=== PATIENT | female | born 1950 | race Caucasian/White ===

== ENCOUNTER 2020-08-03 14:43 | Outpatient (CLI) | payer MEDICARE, SELFPAY ==
--- NOTE | ~2020-08-03 | MM_ITS ---
EXAMINATION: MM screening [facility] BI w pham HISTORY: Screening TECHNIQUE: Craniocaudal and mediolateral oblique 3-D tomosynthesis images were obtained and synthetic 2-D images were generated. CAD analysis was submitted and interpreted. COMPARISON: Comparison to multiple prior studies sequentially, with oldest reviewed study dated 06/16. BREAST PARENCHYMAL COMPOSITION: There are scattered areas of fibroglandular density. FINDINGS: There is no evidence of suspicious mass, calcification, or architectural distortion to sugg est malignancy in either breast. There has been no suspicious interval change. IMPRESSION: 1. No mammographic evidence of malignancy. 2. Recommend routine screening mammography in one year. BI-RADS Category 1: Negative Reviewed, dictated and finalized at location A.
--- NOTE | ~2020-08-03 | DEXA_ITS ---
Bone Density Report Name: Marguerite Dunn Age: 70 Sex: Female Ethnicity: White Date of : 1950 Indication: postmenopausal; height loss; prior fracture; cancer; Referring Provider: Bethany Erwin Study: Bone densitometry was performed. Exam Date: August 03, 2020 Accession number: [id number] Bone Density: Region BMD T-score Z-score Classification AP Spine (L1, L4) 1.169 1.2 3.4 Normal Femoral Neck (Left) 0.778 -0.6 1.2 Normal Total Hip (Left) 1.030 0.7 2.3 Normal Total Hip Bilateral Avg 0.987 0.3 2.0 Normal Femoral Neck (Right) 0.863 0.1 2.0 Normal Total Hip (Right) 0.943 0.0 1.6 Normal World Health Organization criteria for BMD impression classify patients as: Normal (T-score at or above -1.0), Osteopenia (T-score between -1.0 and -2.5), or Osteoporosis (T-score at or below -2.5). 10-year Fracture Risk: FRAX not reported because: All T-scores for Spine Total, Hip Total, Femoral Neck at or above -1.0 Previous Exams: Region Exam Age BMD T-score BMD Change BMD Change Date g/cm2 vs Baseline vs Previous AP Spine(L1, L4) 08/03/2020 70 1.169 1.2 0.123(11.7%)# -0.016(-1.4%)# 11/14/2013 63 1.185 1.3 0.139(13.3%)# 0.062(5.5%)# 06/16/2011 61 1.124 0.8 0.077(7.4%)* 0.004(0.3%) 04/23/2009 58 1.120 0.8 0.074(7.0%)* 0.074(7.0%)* 02/07/2006 55 1.046 0.1 Total Hip(Left) 08/03/2020 70 1.030 0.7 -0.071(-6.5%)# 0.028(2.8%)# 11/14/2013 63 1.002 0.5 -0.099(-9.0%)# -0.053(-5.0%)# 06/16/2011 61 1.055 0.9 -0.046(-4.1%)* -0.054(-4.9%)* 04/23/2009 58 1.109 1.4 0.009(0.8%) 0.009(0.8%) 02/07/2006 55 1.101 1.3 Total Hip(Right) 08/03/2020 70 0.943 0.0 -0.115(-10.9%) -0.024(-2.5%)# 11/14/2013 63 0.967 0.2 -0.091(-8.6%)# -0.083(-7.9%)# 06/16/2011 61 1.050 0.9 -0.008(-0.8%) -0.008(-0.7%) 04/23/2009 58 1.058 0.9 -0.001(-0.1%) -0.001(-0.1%) 02/07/2006 55 1.058 1.0 *Denotes significance at 95% confidence level, LSC for AP Spine = 0.022 g/cm2, LSC for Total Hip = 0.027 g/cm2 Clinical Information Provided by Patient: Has had a low trauma fracture Has used the following medications: Vitamin D Has the following medical conditions: Cancer Patient maximum height was 65 Menopause Age: 52 No regular weight bearing exercise Does not regularly consume dairy products Onset of menses at age 12 Number of children 2 Impression: The patient has nor
== END 2020-08-03 14:44 | disposition home or self-care (01) ==
LOC: ANHIMG 14:45
PROVIDERS: PCP Internal Medicine; Visit Provider Nurse Practitioner
DX: Z12.31 Encounter for screening mammogram for malignant neoplasm of breast (principal); Z78.0 Asymptomatic menopausal state
CPT/HCPCS: 77063; 77067; 77080

== ENCOUNTER 2021-09-06 08:28 | Outpatient (CLI) | payer MEDICARE, SELFPAY ==
--- NOTE | ~2021-09-06 | MM_ITS ---
EXAMINATION: MM screening [facility] BI w pham HISTORY: Screening TECHNIQUE: Craniocaudal and mediolateral oblique 3-D tomosynthesis images were obtained and synthetic 2-D images were generated. CAD analysis was submitted and interpreted. COMPARISON: Comparison to multiple prior studies sequentially, with oldest reviewed study dated 09/27. BREAST PARENCHYMAL COMPOSITION: There are scattered areas of fibroglandular density. FINDINGS: There is no evidence of suspicious mass, calcification, or architectural distortion to sugg est malignancy in either breast. There has been no suspicious interval change. IMPRESSION: 1. No mammographic evidence of malignancy. 2. Recommend routine screening mammography in one year. BI-RADS Category 1: Negative Reviewed, dictated and finalized at location A.
== END 2021-09-06 08:29 | disposition home or self-care (01) ==
PROVIDERS: PCP Internal Medicine; Visit Provider Internal Medicine
DX: Z12.31 Encounter for screening mammogram for malignant neoplasm of breast (principal)
CPT/HCPCS: 77063; 77067

== ENCOUNTER 2021-11-14 09:23 | Outpatient (CLI) | payer MEDICARE, SELFPAY ==
--- NOTE | ~2021-11-14 | CT_ITS ---
EXAMINATION: CT LE LT wo con DATE: 11/14/2021 10:53 INDICATION: Unilateral primary osteoarthritis of the left knee TECHNIQUE: High resolution computed tomography (CT) of the left was performed without intravenous con trast. Additional sagittal and coronal reconstructions were performed. Automated exposure control and iterative reconstruction technique were employed. The dose-length product was 1723.17 mGy-cm. COMPARISON: Left knee radiographs dated 09/07/2021 FINDINGS: Mild left genu vera with severe osteoarthritis in medial compartment including remodeling of the jasbir cular cortex along the medial tibial plateau. The degree of joint space narrowing is underestimated o n the current nonweightbearing imaging compared with the prior radiographs. Mild osteoarthritis with small marginal ossified to medial compartment and with small marginal osteophytes and mild nonuniform joint space narrowing in the patellofemoral compartment. Very small left knee joint effusion. Additi onal mild osteoarthritis at the left hip, left tibiotalar and subtalar joints as well as several tars al metatarsal joints. Chronic distal Achilles enthesopathy with large Achilles calcaneal enthesophyte and multiple enthesopathic ossicles in the thickened distal Achilles tendon. Numerous diverticula al michael the sigmoid and distal descending colon without adjacent inflammatory change to suggest diverticu litis. Pessary within the vaginal vault. Visualized pelvis is otherwise unremarkable. No pathological ly enlarged left pelvic or inguinal lymphadenopathy. IMPRESSION: 1. Severe medial compartment predominant osteoarthritis at the left knee with very small knee joint e ffusion. 2. Prominent chronic distal Achilles enthesopathy. 3. Diverticulosis. Reviewed, dictated and finalized at location . ING MACHINE TENDER IMPRESSION: 1. Severe medial compartment predominant osteoarthritis at the left knee with v jayson small knee joint effusion. 2. Prominent chronic distal Achilles enthesopathy. 3. Diverticulosis.
--- NOTE | 2021-11-14 11:22 | ECG_ITS ---
Measurements Intervals [place] Rate: 70 P: 36 CA: 154 QRS: 11 QRSD: 89 T: 41 QT: 369 QTc: 401 Interpretive Statements SINUS RHYTHM VOLTAGE CRITERIA FOR LVH BORDERLINE ECG Electronically Signed On 11-14-2021 11:37:37 STRAWHAT BLOCKING OPERATOR by Lucian Lacey D.O.
[2021-11-14 11:34] LABS: Hematocrit 35.2 % (37.0-47.0); Hemoglobin 11.6 g/dL (12.0-15.0)
[2021-11-14 11:48] LABS: Albumin Level 4.6 g/dL (3.5-5.1); Estimated Glomerular Filt Rate > 60; Glucose 101 mg/dL (65-110)
[2021-11-14 11:55] LABS: Urine Cotinine NEGATIVE
== END 2021-11-14 09:24 | disposition home or self-care (01) ==
PROVIDERS: PCP Internal Medicine; Visit Provider Orthopaedic Surgery
DX: M17.12 Unilateral primary osteoarthritis, left knee (principal); Z01.818 Encounter for other preprocedural examination; E78.5 Hyperlipidemia, unspecified; E11.9 Type 2 diabetes mellitus without complications; I10 Essential (primary) hypertension; E03.9 Hypothyroidism, unspecified; G45.9 Transient cerebral ischemic attack, unspecified; K57.30 Diverticulosis of large intestine without perforation or abscess without bleeding
CPT/HCPCS: 73700; 80307; 82040; 82565; 82947; 83036; 85014; 85018; 93005

== ENCOUNTER 2021-11-15 14:44 | Emergency (ER) | payer MEDICARE, SELFPAY ==
[2021-11-15] VITALS (7 sets, daily range): BP systolic 120–142; BP diastolic 55–85; PULSE 81–94; RESP 14–19; TEMP 36.9; O2SAT 96–99
--- NOTE | ~2021-11-15 | CT_ITS ---
EXAMINATION: CT brain wo con DATE: 11/15/2021 15:06 INDICATION: Head injury. Loss of consciousness. TECHNIQUE: Computed tomography (CT) of the head was performed without intravenous contrast. The mA wa s adjusted according to patient size. Iterative reconstruction technique was employed. The dose-lengt h product was 681.00 mGy-cm. COMPARISON: None FINDINGS: There is an old lacunar infarct in left thalamus. There are scattered areas of low attenuat ion in the cerebral white matter, which is within normal limits for the patient's age. There is no in tracranial hemorrhage, acute infarction, or abnormal intracranial mass lesion. The ventricles are nor mal in size. The orbits are normal. There is mild mucosal thickening in the ethmoid sinuses. The mast oid air cells are normal. There is a laceration of left posterior scalp. IMPRESSION: 1. Old lacunar infarct in the left thalamus. Reviewed, dictated and finalized at location A. ING SPECIALIST
--- NOTE | ~2021-11-15 | XR_ITS ---
EXAMINATION: XR shoulder RT min 2V DATE: 11/15/2021 16:25 INDICATION: Postreduction right glenohumeral dislocation TECHNIQUE: AP and transscapular Y views of the right shoulder were obtained. COMPARISON: 03/16/2021 FINDINGS: Successful reduction of the previous a dislocated right glenohumeral joint. There is narrowing of the subacromial space suggesting rotator cuff tear. No fracture identified. Moderate right acromioclavic ular osteoarthritis. Small marginal osteophytes along the humeral head and glenoid consistent with ad ditional mild right glenohumeral osteoarthritis. Soft tissues are unremarkable. IMPRESSION: 1. Successful reduction of the previously dislocated right glenohumeral joint. No evident fracture. 2. Narrowing of the subacromial space suggesting rotator cuff tear. 2. Moderate right acromioclavicular and mild glenohumeral osteoarthritis. Reviewed, dictated and finalized at [facility]. STMAS TREE GROWER
--- NOTE | ~2021-11-15 | XR_ITS ---
XR shoulder RT min 2V, XR humerus RT 11/15/2021 15:21 Indication: Right shoulder pain after fall Procedure: 2 views right shoulder and 2 views right humerus Comparison: No prior studies for comparison. Findings: There is anterior shoulder dislocation. No fracture identified. Acromioclavicular joint in anatomic alignment. No significant soft tissue abnormality. Impression: 1: Right anterior shoulder dislocation. Reviewed, dictated and finalized at location A. ENT RELATIONS REPRESENTATIVE Impression: 1: Right anterior shoulder dislocation. Impression: 1: Right anterior shoulder dislocation.
--- NOTE | ~2021-11-15 | XR_ITS ---
XR thoracic spine 2V DATE: 11/15/2021 16:25 INDICATION: Fall. Upper back pain. TECHNIQUE: AP and lateral views COMPARISON: None FINDINGS: Diffuse osteopenia. No fracture or dislocation or bone destruction. The thoracic pedicles a re intact. No paraspinal soft tissue thickening. There is mild degenerative spurring of the thoracic spine. More prominent degenerative disc disease is noted in the lumbar spine. IMPRESSION: Osteopenia and mild degenerative spurring of the thoracic spine, more prominent degenerat espinoza spurring of lumbar spine Reviewed, dictated and finalized at location B. AL BASIC PROGRAMMER IMPRESSION: Osteopenia and mild degenerative spurring of the thoracic spine, mo re prominent degenerative spurring of lumbar spine
--- NOTE | ~2021-11-15 | CT_ITS ---
EXAMINATION: CT cervical spine wo con DATE: 11/15/2021 15:06 INDICATION: Head injury. Neck pain. TECHNIQUE: Computed tomography (CT) of the cervical spine was performed without intravenous contrast. Automated exposure control and iterative reconstruction technique were employed. The dose-length pro duct was 464.41 mGy-cm. COMPARISON: None FINDINGS: Partially visualized is anterior dislocation of right shoulder. There is 9 degrees dextrocu rvature of cervical spine. Vertebral body heights are normal. There is mildly decreased disc height a t C5-C6 and severely decreased disc height at C6-C7. The following disc levels are specifically discu ssed: C2-C3: There is mild left uncovertebral joint osteoarthritis. There is moderate right and severe left facet joint osteoarthritis. There is no neural foraminal stenosis. There is no central canal stenosi s. C3-C4: There is mild left uncovertebral joint osteoarthritis. There is mild right and moderate left f acet joint osteoarthritis. There is no neural foraminal stenosis. There is no central canal stenosis. C4-C5: There is mild bilateral uncovertebral joint osteoarthritis. There is moderate bilateral facet joint osteoarthritis. There is mild bilateral neural foraminal stenosis. There is mild central canal stenosis. C5-C6: There is mild right and severe left uncovertebral joint osteoarthritis. There is mild bilatera l facet joint osteoarthritis. There is mild bilateral neural foraminal stenosis. There is mild centra l canal stenosis. C6-C7: There is severe bilateral uncovertebral joint osteoarthritis. There is moderate right and mile re left facet joint osteoarthritis. There is mild bilateral neural foraminal stenosis. There is mild central canal stenosis. C7-T1: There is mild bilateral uncovertebral joint osteoarthritis. There is moderate right and severe left facet joint osteoarthritis. There is mild left neural foraminal stenosis. There is no central c anal stenosis. IMPRESSION: 1. No fracture. 2. Severe cervical spondylosis. 3. Anterior right shoulder dislocation. Reviewed, dictated and finalized at location A. HIC MANAGER
[2021-11-15] MEDS: SODIUM CHLORIDE 0.9% IV 1,000 ML 999 ML IV CONT (16:01)
--- NOTE | 2021-11-15 16:21 | ED.GENADULT ---
HPI - General Adult General Chief complaint: Fall <Greg Ball PA-C - Last Filed: 11/15/21 20:10> Stated complaint: fall down stairs <Greg Ball PA-C - Last Filed: 11/15/21 20:10> Source: patient and EMS <Greg Ball PA-C - Last Filed: 11/15/21 20:10> Mode of arrival: EMS <Greg Ball PA-C - Last Filed: 11/15/21 20:10> Limitations: no limitations <KRUNAL Singh Last Filed: 11/15/21 20:10> History of Present Illness HPI narrative: Patient is 71-year-old female presented via EMS after a fall down 12 steps while carrying things at her home. Patient reports that her heard her fall and contacted her son and daughter who came to the house and helped her and called EMS. Patient reports that she hit her head and lost consciousness for a few seconds. She denies any changes to her vision, hearing, nausea, vomiting, weakness to her extremities. Patient reports pain and deformity to her right shoulder. Patient reports injury to the left side of her head. She denies chest pain or shortness of breath. <KRUNAL Singh Last Filed: 11/15/21 20:10> Related Data Home medications: Home Medications Medication Instructions Recorded Confirmed levothyroxine 137 mcg tablet 125 mcg PO DAILY tablet 09/07/21 09/07/21 cholecalciferol (vitamin D3) 50 200 mcg PO DAILY cap 09/20/21 mcg (2,000 unit) capsule <Greg Ball PA-C - Last Filed: 11/15/21 20:10> Allergies/adverse reactions: Allergies Allergy/AdvReac Type Severity Reaction Status Date / Time codeine Allergy Unknown Nausea Verified 11/15/21 14:51 <Greg Ball PA-C - Last Filed: 11/15/21 20:10> Review of Systems Review of Systems: CONSTITUTIONAL: Denies fever, chills, or sweats. EYES: Denies visual changes, redness, or discharge. ENT: Denies rhinorrhea, congestion, sore throat, or otalgia. CARDIOVASCULAR: Denies chest pain, palpitations, or edema. RESPIRATORY: Denies cough or dyspnea. GASTROINTESTINAL: Denies abdominal pain, nausea, vomiting, or diarrhea. GENITOURINARY: Denies dysuria or hematuria. SKIN: Reports laceration Denies rash or itching. MUSCULOSKELETAL: Right shoulder pain deformity and thoracic back pain Denies joint pain or myalgia. NEUROLOGIC: Denies headache, numbness, dizziness, or weakness. PSYCHIATRIC: Denies anxiety or depression. <Greg Ball PA-C - Last Filed: 11/15/21 20:10> PMFSH Past Medical History Medical History: Medical History (Updated 11/15/21 @ 17:37 by Greg Ball PA-C) Bilateral knee pain Diabetes Hernia HTN (hypertension) Hyperlipidemia Hypokalemia Hypothyroidism Postoperative hypothyroidism TIA (transient ischemic attack) 2007 Vitamin deficiency <Greg Ball PA-C - Last Filed: 11/15/21 20:10> Surgical History Surgical History: Surgical History History of appendectomy 1964 History of biopsy lump biopsy 1992 History of thyroidectomy 2003 History of tubal ligation 1984 <Greg Ball PA-C - Last Filed: 11/15/21 20:10> Family History Family History: Family History Mother Depression Hypertension Family history of heart disease in male family member before age 55, Onset Age: 71 Hyperlipidemia Heart disease Diabetes mellitus Father Hypertension Family history of osteoarthritis Family history of kidney disease Family history of diabetes mellitus in first degree relative Heart disease Diabetes mellitus Sibling Carcinoma of colon <Greg Ball PA-C - Last Filed: 11/15/21 20:10> Social History Social History: Social History (Updated 09/20/21 @ 11:12 by Ai Jose) Social History: caffeine-soda Smoking status: Never smoker Alcohol intake: never <Greg Ball PA-C - Last Filed: 11/15/21 20:10> Exam Narrative: GENERAL: Well-appearing, well-nourished, and
== END 2021-11-15 17:44 | disposition home or self-care (01) ==
PROVIDERS: Emergency Provider Emergency Medicine; PCP Internal Medicine
DX: S01.01XA Laceration without foreign body of scalp, initial encounter (principal); S43.014A Anterior dislocation of right humerus, initial encounter; E11.9 Type 2 diabetes mellitus without complications; I10 Essential (primary) hypertension; E78.5 Hyperlipidemia, unspecified; E89.0 Postprocedural hypothyroidism; Z86.73 Personal history of transient ischemic attack (TIA), and cerebral infarction without residual deficits; M47.812 Spondylosis without myelopathy or radiculopathy, cervical region; M19.011 Primary osteoarthritis, right shoulder; W10.9XXA Fall (on) (from) unspecified stairs and steps, initial encounter
CPT/HCPCS: 12001; 23650; 70450; 72070; 72125; 73030; 73060; 99285; A4565; J7030

== ENCOUNTER 2021-12-14 11:38 | Outpatient (CLI) | payer MEDICARE, SELFPAY ==
[2021-12-14 12:53] LABS: Basophils Percent Auto 0.5 % (0.2-1.2); Eosinophils Absolute Auto 0.1 K/mm3 (0-0.3); Eosinophils Percent Auto 0.8 % (0-4.4); Hematocrit 35.7 % (37.0-47.0); Hemoglobin 11.6 g/dL (12.0-15.0); Immature Granulocyte Absolute 0.02 K/mm3 (0.00-0.031); Immature Granulocyte Percent A 0.3 % (0-0.5); Lymphocytes Absolute Auto 1.46 K/mm3 (0.9-3.2); Lymphocytes Percent Auto 19.7 % (18.3-44.2); Mean Corpuscular HGB Conc 32.5 g/dl (32-36); Mean Corpuscular Hemoglobin 30.1 pg (26-34); Mean Corpuscular Volume 92.7 fl (80-100); Mean Platelet Volume 11.7 fl (7.4-10.4); Monocytes Absolute Auto 0.4 K/mm3 (0.1-0.6); Monocytes Percent Auto 5.8 % (2.6-8.5); Neutrophils Absolute Auto 5.4 K/mm3 (1.3-6.7); Neutrophils Percent Auto 72.9 % (45.5-73.1); Platelet Count Result 166 k/mm3 (150-375); Red Blood Count 3.85 M/mm3 (4.2-5.4); Red Cell Distribution Width 14.1 % (11.5-14.5); White Blood Count 7.4 K/mm3 (4.5-10.0)
[2021-12-14 13:07] LABS: Anion Gap 8 mmol/L (8-16); Blood Urea Nitrogen 23 mg/dL (7-17); Calcium 10.3 mg/dL (8.4-10.2); Carbon Dioxide 33 mmol/L (22-30); Chloride 98 mmol/L (98-107); Estimated Glomerular Filt Rate > 60; Glucose 96 mg/dL (65-110); Potassium 3.6 mmol/L (3.4-5.0); Sodium 139 mmol/L (137-145)
== END 2021-12-14 11:39 | disposition home or self-care (01) ==
LOC: ANHSURGERY 11:41
PROVIDERS: Anesthesiology; PCP Internal Medicine; Visit Provider Orthopaedic Surgery
DX: M17.12 Unilateral primary osteoarthritis, left knee (principal); Z79.899 Other long term (current) drug therapy; Z01.818 Encounter for other preprocedural examination
CPT/HCPCS: 36415; 80048; 85025; 87081

== ENCOUNTER 2022-01-10 00:18 | Day surgery (SDC) | payer MEDICARE, SELFPAY ==
--- NOTE | 2021-12-14 11:50 | PC.NURSE ---
Report to the Outpatient Waiting Room, entrance under the green pavilion located off [facility], at time ___0900____ on date __01/10/22 . OR Time: 1100___. - You and your visitor will be asked a series of questions to screen for COVID 19 for your protection. - A mask is required within the hospital. - NO visitors are allowed at this time. Patient visitors will be guided where to wait when not with patient. Preoperative COVID Testing Requirements: No COVID Test needed if: (proof is required; if not received patient will have Rapid Test prior to entry) - Patient has received COVID Vaccine at least 14 days prior to procedure date or - Patient has positive COVID test result within last 90 days of surgery date. COVID Test needed if above criteria is not met If not COVID vaccinated a COVID test must be conducted within 72 hours of surgery and patient is asked to isolate self from time of testing until procedure. You will go to the [employer] [facility] for your COVID testing. The [employer] [place] Testing site is located at the corner of [address] [facility]. You will only be called if COVID results are positive and your surgeon may reschedule your elective surgery date. Patients may have clear liquids (water, carbonated beverages, clear teas, apple juice) until 3 hours prior to surgery with a maximum of 20 ounces. (0800 AM) - No food from midnight until time of surgery - Infants may have breast milk until 4 hours before surgery, formula 6 hours prior to surgery. - Children will be allowed to drink immediately following surgery. If applicable, please bring a bottle or sippy cup to assist with drinking. Juice, water, soda, and popsicles are readily available. For infants on formula, please bring formula the day of surgery. Pacifiers are allowed. Take the following medications with a SIP of water the morning of surgery: _LEVOTHYROXINE__ Mediacations to discontinue per DR. OSPINA - _IBUPROFEN - 7 DAYS PRIOR TO SURGERY, DATE TO TAKE LAST DOSE 01/02/22 Medications to discontinue per ANESTHESIA - _VIT D3 - 3 DAYS PRIOR TO SURGERY, DATE TO TAKE LAST DOSE 01/06/22 Please no make-up, nail botswanan, hairspray, perfume, deodorant, or body powder the day of surgery. No jewelry (including any body piercings) or valuables the day of surgery, leave them at home. Please take a shower or bath the night before, or the morning of, surgery with an antibacterial soap. Wear comfortable, loose fitting clothing. Children are encouraged to wear pajamas. - Jewelry must be removed prior to entering the operating room. Rings and piercings that are not removed may be cut off. - The hospital will not accept responsibility for valuables. - Please leave all valuables, including medications, at home the day of surgery. If you are going home after surgery, a licensed team truck driver must drive you home. - NO public transportation without another adult. - We recommend that an adult stay with you for 24 hours following discharge. - We also recommend that you do not drive, make important decision, drink alcoholic beverages, or take any drugs that were not prescribed by your health care provider for at least 24 hours after your discharge time. For Pediatric surgeries, we recommend two adults accompany the child home (only one inside the building at this time). Follow any additional instructions given to you from your surgeon. Telephone instructions given to ___PT and asked if any additional questions and then verbalized understanding. Patient advised to call surgeon office or pre surgery nurse liaison [phone] if any additional questions.
[2021-12-14 12:04] VITALS: BP 142/66; PULSE 78; RESP 18; TEMP 36.6; O2SAT 97; BMI 28.7
--- NOTE | 2022-01-09 12:16 | WPDANESEPPF ---
Anes - Initial Pre Proc Eval Procedure: Operation Date: 01/10/22 11:00 Proposed Procedures p Custom Left Total Knee Arthroplasty - Nathaniel Barajas MD Date/Time: 01/09/22 12:16 Surgeon: Nathaniel Barajas MD Pre Op Diagnosis: primary oa left knee Patient Data Age: 71 Gender: F Height: 1.63 m Weight: 75.9 kg Last Vital Signs Temp 36.6 C 12/14/21 12:04 Pulse 78 12/14/21 12:04 Resp 18 12/14/21 12:04 BP 142/66 H 12/14/21 12:04 Pulse Ox 97 12/14/21 12:04 Allergies Allergy/AdvReac Type Severity Reaction Status Date / Time codeine AdvReac Unknown Nausea Verified 01/10/22 10:16 Home Medications Medication Instructions Recorded Confirmed Type atorvastatin 10 mg tablet 10 mg PO DAILY #90 tablet 07/22/21 01/10/22 Rx losartan 100 1 tablet PO DAILY #90 tablet 07/26/21 01/10/22 Rx mg-hydrochlorothiazide 25 mg tablet levothyroxine 137 mcg tablet 125 mcg PO DAILY tablet 09/07/21 01/10/22 History cholecalciferol (vitamin D3) 50 200 mcg PO DAILY cap 09/20/21 01/10/22 History mcg (2,000 unit) capsule acetaminophen 650 mg 1,300 mg PO Q8H tablet 01/03/22 01/10/22 History tablet,extended release Patient hx anesthesia problems: none Family hx anesthesia problems: none Results Review: All pre-operative results and documents have been reviewed as part of the pre-operative evaluation. [facility] Past Medical History Medical History (Updated 01/09/22 @ 12:17 by Aldair Penn MD) Bilateral knee pain Diabetes Hernia HTN (hypertension) Hyperlipidemia Hypokalemia Hypothyroidism Overweight (BMI 25.0-29.9) Postoperative hypothyroidism Thyroid cancer TIA (transient ischemic attack) 2007 Vitamin deficiency Surgical History Surgical History History of appendectomy 1964 History of biopsy lump biopsy 1992 History of thyroidectomy 2004 History of tubal ligation 1985 Family History Family History Mother Depression Hypertension Family history of heart disease in male family member before age 55, Onset Age: 71 Hyperlipidemia Heart disease Diabetes mellitus Father Hypertension Family history of osteoarthritis Family history of kidney disease Family history of diabetes mellitus in first degree relative Heart disease Diabetes mellitus Sibling Carcinoma of colon Social History Social History Social History: caffeine-soda Second hand tobacco smoke exposure: No Additional smoking assessment comments: PT DENIES ALL FORMS OF TOBACCO USE Alcohol intake: never Substance use: never Substance use type: does not use Living arrangements: with family Spiritual care concerns: No Anes - Eval Final PreProcedure Day of Procedure 01/09/22 12:16 Patient weight: overweight Heart: regular rate and rhythm Lungs: clear to auscultation and normal air movement Airway: Mallampati scale class II Neurological: alert and oriented Last oral intake: >/= 8 hours ASA classification: III Emergent: no Anesthetic plan: proceed Anesthesia type and monitoring: general LMA Results Review: All pre-operative results and documents have been reviewed as part of the pre-operative evaluation. Informed Consent: The patient's anesthetic plan and its attendant risks and benefits were discussed with the patient/family/POA. Questions were solicited and answers provided to the satisfaction of the patient/family/POA.
--- NOTE | 2022-01-09 12:17 | WPDANESPNB ---
Anes - Peripheral Nerve Block Date/Time: 01/09/22 12:17 I have discussed with the patient/family/POA the placement of a peripheral nerve block for post-operative pain management, including associated risks, benefits, complications, and side effects. Alternative methods of post-operative analgesia were detailed. Questions were solicited and answers provided to the satisfaction of the patient/family/POA. Time-Out: A pre-procedural Time-Out was completed immediately before starting the procedure and confirmed: Patient Identification, Site, Procedure, Patient Position and the Availability of Requisite Equipment. Clinical Indications: Acute post-operative pain management requested by the operative surgeon. Nerve Block Insertion Note Anes-nerve block: adductor canal left Patient position: supine Skin prep: chlorhexidine Needle: 22 gauge, stimulating, insulated echogenic needle. Needle length: 80 mm Technique: ultrasound Technique comment: in plane Injectate: bupivacaine 0.5% with epi 5 mcg/ml (30cc) Observations: tolerated well Complications: none Procedure start time:: 1055 Procedure end time:: 1100
[2022-01-10] VITALS (15 sets, daily range): BP systolic 112–147; BP diastolic 51–71; PULSE 64–97; RESP 12–18; TEMP 36.3–37.1; O2SAT 94–100
--- NOTE | ~2022-01-10 | XR_ITS ---
XR knee LT 2V DATE: 01/10/2022 13:58 INDICATION: Left total knee replacement, postoperative examination TECHNIQUE: AP and crosstable lateral portable postoperative views COMPARISON: None FINDINGS: Left knee arthroplasty without patellar resurfacing. Normal alignment of the prosthetic com ponents. No fracture or dislocation or joint effusion is evident. No periosteal reaction or bone dest ruction. No unusual radiopaque foreign body. There is expected postoperative subcutaneous and intra-articular gas. IMPRESSION: Postoperative examination following left knee arthroplasty without patellar resurfacing Reviewed, dictated and finalized at location B. [employer]
--- NOTE | 2022-01-10 07:10 | WPDHPUPDATE1 ---
History and Physical Update Update Date/Time: 01/10/22 07:10 History and Physical has been reviewed, including an updated exam of the patient. There are NO changes in the patient's condition. Risks, benefits, and alternatives have been discussed and questions answered. Patient agrees to proceed with procedure.
[2022-01-10] MEDS: TRANEXAMIC ACID 1,000MG/ISO100 1,000 MG/100 ML BAG 200 MG IVPB (10:00)
[2022-01-10] MEDS: ACETAMINOPHEN 500 MG TABLET 1000 MG PO (10:00)
[2022-01-10] MEDS: LACTATED RINGERS 1,000 ML 30 ML IV CONT ×2 (10:00→13:47)
[2022-01-10] MEDS: SCOPOLAMINE 1.5 MG PATCH TRANSDERM (11:00)
[2022-01-10] MEDS: ceFAZolin 2 GM/D5W 50 ML 2 GM/50 ML BAG IVPB ×2 (11:22→18:04)
--- NOTE | 2022-01-10 14:14 | W.PM.PROC2 ---
Procedure Note - Detailed Date of Procedure 01/10/22 Pre-op Diagnosis primary oa left knee Post-op Diagnosis same Procedure Performed Total knee arthroplasty, left. Surgeon Nathaniel Barajas MD Work Distributor Madison Dai PA-C Anesthesia general and regional (Subsartorial block.) Description of Procedure Physician budget assistant, Madison Johnson PA-C, required for surgery; including patient positioning, draping, tissue retraction, maintaining instrument position, cement removal, wound closure, and dressing placement. Preoperative antibiotics were given. The limb was prepped and draped in the usual sterile fashion with a well-padded tourniquet high on the thigh. The limb was exsanguinated and the tourniquet inflated to 300 mmHg. A longitudinal incision was created just medial to the patella. A trivector approach to the knee was performed. Arthrotomy was taken down through the joint capsule. No significant releases were initially taken. The femur was exposed and the F1 jig was applied. The coring tool was used to remove the cartilage for the F2 jig to sit flush with the bone. The jig was pinned and the distal cut carefully taken. Caliper measurements confirmed appropriate bony resections according to the preoperative templated plan. The F4 cutting jig for the femur was applied, at the standard rotation. The AP and anterior chamfer cuts were taken. The F5 jig was applied and the posterior chamfer cuts were taken. The tibia was prepared using the T1 jig, after removing cartilage for the jig contact points. Proper alignment was checked with the alignment kenn. The tibia was cut using the T1u guide. Gap balancing was performed. Gap measurements were taken and the knee was trialed. Excellent alignment and soft tissue balancing was confirmed. The posterior cruciate ligament was recessed along the proximal tibia. Meniscal remnants were removed. The trial components were assembled. Excellent range of motion and proper soft tissue balancing were confirmed throughout the full range of motion. Patellar tracking was excellent. The knee was copiously irrigated periodically throughout the procedure. The real implants were cemented into position. Excess cement was carefully removed. The wound was closed in layers with interrupted #1 Vicryl suture, 2-0 strata fix suture, 0 strata fix suture, 2-0 strata fix suture. Steri-Strips placed on the skin with the knee flexed. Sterile bulky dressing applied. The patient was brought to the recovery room in stable condition. There were no complications. Implants Conformis Custom total knee arthroplasty. Cemented. Cruciate retaining. 7C insert. Estimated Blood Loss -50.0 Drains No Complications No immediate complications Condition stable Disposition PACU
[2022-01-10] MEDS: fentaNYL CITRATE INJ (*CRX) 100 MCG/2 ML VIAL 25 MCG IV PUSH ×3 (14:46→15:27)
[2022-01-10] MEDS: SODIUM CHLORIDE 0.9% IV 1,000 ML 125 ML IV CONT (15:56)
--- NOTE | 2022-01-10 16:06 | ADMGEN ---
This patient, Marguerite Dunn, was admitted to [facility] (Formerly [facility]) Surgery-1. Patient/family oriented to hospital policies and general routines including ID bracelet, bed and alarms, visiting hours, pain management, procedures, bathroom and other care routines, personal items, smoking policy, room service/diet, and visiting hours. Information on how to activate the Rapid Response Team has been discussed. Patient/Family are encouraged to report perceived risks to care and to ask questions if they do not understand what they are told or what they should do.
[2022-01-10] MEDS: SENNA/DOCUSATE SODIUM TABLET 2 TAB PO (17:19)
[2022-01-10] MEDS: FAMOTIDINE 20 MG TABLET PO (20:43)
[2022-01-11 01:23] VITALS: BP 121/54; PULSE 61; RESP 18; TEMP 36.8; O2SAT 95
[2022-01-11] MEDS: ceFAZolin 2 GM/D5W 50 ML 2 GM/50 ML BAG IVPB ×2 (02:57→10:42)
[2022-01-11 05:23] VITALS: BP 119/51; PULSE 58; RESP 18; TEMP 36.8; O2SAT 96
[2022-01-11] MEDS: LEVOTHYROXINE SODIUM 125 MCG TABLET PO (06:25)
[2022-01-11 07:55] VITALS: PULSE 57; RESP 17; O2SAT 98
[2022-01-11] MEDS: oxyCODONE HCL (*CRX) 5 MG TAB IR PO (08:32)
[2022-01-11 08:49] VITALS: BP 106/42; PULSE 57; RESP 17; TEMP 36.9; O2SAT 98
[2022-01-11] MEDS: ATORVASTATIN 10 MG TABLET PO (09:04)
[2022-01-11] MEDS: CHOLECALCIFEROL 1,000 UNITS TABLET 2000 UNITS PO (09:04)
[2022-01-11] MEDS: polyethylene glycoL 3350 17 GM POWD.PACK PO (09:04)
[2022-01-11] MEDS: hydroCHLOROthiazide 25 MG TABLET PO (09:05)
[2022-01-11] MEDS: FAMOTIDINE 20 MG TABLET PO (09:05)
[2022-01-11] MEDS: LOSARTAN POTASSIUM 100 MG TABLET PO (09:05)
--- NOTE | 2022-01-11 10:16 | P.DS_ITS ---
DS: Admitting Diagnosis Discharge Date 01/11/22 Admitting Diagnosis OA knee Left DS: Discharge Diagnosis Discharge Diagnosis (1) Status post total left knee replacement: Code(s): Z96.652 - Presence of left artificial knee joint Status: Acute Assessment and Plan: Postop day 1: Left total knee arthroplasty. Patient tolerated procedure well. No complications. Pain manageable with pain medication. No numbness or tingling. We had a lengthy discussion regarding postoperative wound care, limitations, expectations, and exercises. Patient shows good understanding. He has had initial physical therapy and is tolerating it well. DVT prophylaxis: 81 mg baby aspirin b.i.d. for 14 days. Short frequent walks. Pain medication: Percocet. Ibuprofen. Prednisone. Patient has followup appointment with Dr. Barajas in 3 weeks. DS: Summary Hospital Course Reason for hospitalization: Total knee arthroplasty Hospital Course: Patient tolerated procedure well. Has had initial PT/OT. Status at Discharge Functional status at discharge: uses cane/walker Overall status at discharge: patient is progressing back to baseline Time Spent with Patient Time attestation: Total time spent providing and/or coordinating discharge services: Exam Narrative: Overweight female. Resting comfortably in bed. Wearing compression socks bilaterally. Dressing intact with no drainage. Moderate swelling. No ecchymosis. No erythema. No hematoma. Range of motion limited due to pain. Calf nontender. Neurologic status intact. No varicosities. Distal pulses palpable. Discharge Plan Discharge Patient Disposition: Home, Self-Care Discharge Instructions: See instruction sheet Stand Alone Forms: General Discharge Instructions Follow-up/Referrals: Madison Dai PA [Physician Band Instrument Repairer] - Discharge Medications: New aspirin 81 mg tablet,delayed release (DR/EC) 81 mg PO BID 14 Days Qty: 28 RF: 0 oxycodone-acetaminophen 5-325 mg tablet 1 - 2 tablet PO Q4-6H MDD 6 PRN (Reason: pain) Qty: 30 RF: 0 prednisone 5 mg tablet 5 mg PO DAILY 21 Days Qty: 21 RF: 0 Continued levothyroxine [Synthroid] 137 mcg tablet 125 mcg PO DAILY RF: 0 losartan-hydrochlorothiazide 100-25 mg tablet 1 tablet PO DAILY Qty: 90 RF: 3 cholecalciferol (vitamin D3) 50 mcg (2,000 unit) capsule 200 mcg PO DAILY RF: 0 atorvastatin 10 mg tablet 10 mg PO DAILY Qty: 90 RF: 3 Held acetaminophen [Tylenol Arthritis Pain] 650 mg tablet extended release 1,300 mg PO Q8H RF: 0 Hold Instructions: Resume on 01/25/22. Hold while taking Percocet regularly. No more than 3,000 mg Tylenol in a 24 hour period.
--- NOTE | 2022-01-11 11:24 | PC.NURSE ---
Discharge orders in place by physician. PT/OT and care coordination have signed off for patient discharge. Discharge packet and instructions reviewed with patient. Patient verbalizes understanding and has no further questions at this time. Patient discharged on 01/11/22 at 1140 to the care of her son. Patient is alert/oriented and ambulating safely at time of discharge.
--- NOTE | 2022-01-11 11:44 | WPDANESPN ---
Anes - Prog Note Post-Op Date/Time: 01/11/22 11:44 Cardiovascular status: normal Respiratory status: normal Airway patency: baseline Mental status: baseline Post-Op hydration status: normal Vital Signs: Last Vital Signs Temp 36.9 C 01/11/22 08:49 Pulse 57 L 01/11/22 08:49 Resp 17 01/11/22 08:49 BP 106/42 L 01/11/22 08:49 Pulse Ox 98 01/11/22 08:49 Pain Score (VAS): 0 I/O: Intake & Output 01/10/22 01/11/22 01/11/22 23:59 07:59 15:59 Intake Total 600 850 290 Balance 600 850 290 Post-procedural complaints: none Patient Feedback: Patient satisfied with anesthetic care.
== END 2022-01-11 11:40 | disposition home or self-care (01) ==
LOC: ANHSURGERY 08:54 → ANHSUROVER 16:00
PROVIDERS: PCP Internal Medicine; Visit Provider Orthopaedic Surgery
PROC: (CPT 27447; principal; 2022-01-10 11:00)
DX: M17.12 Unilateral primary osteoarthritis, left knee (principal); G89.18 Other acute postprocedural pain; I10 Essential (primary) hypertension; E78.5 Hyperlipidemia, unspecified; E11.9 Type 2 diabetes mellitus without complications; E89.0 Postprocedural hypothyroidism; Z86.73 Personal history of transient ischemic attack (TIA), and cerebral infarction without residual deficits
CPT/HCPCS: 27447; 64447; 36415; 73560; 80048; 85025; 87081; 97110; 97161; 97165; A9270; C1713; C1776; J0131; J0171; J0690; J1100; J1885; J2250; J2405; J2704; J2795; J3010; J7030; J7120

== ENCOUNTER 2022-11-01 11:17 | Outpatient (CLI) | payer MEDICARE, SELFPAY ==
--- NOTE | ~2022-11-01 | MM_ITS ---
EXAMINATION: MM screening [facility] BI w pham HISTORY: Screening mammogram TECHNIQUE: Craniocaudal and mediolateral oblique 3-D tomosynthesis images were obtained and synthetic 2-D images were generated. CAD analysis was submitted and interpreted. COMPARISON: 09/06/2021, 08/03/2020, 02/19/2019 BREAST PARENCHYMAL COMPOSITION: There are scattered areas of fibroglandular density. FINDINGS: No suspicious mass, calcification, or architectural distortion are identified in either cb ast to suggest malignancy. There has been no suspicious interval change. IMPRESSION: 1. No mammographic evidence of malignancy. 2. Recommend routine screening mammography in one year. BI-RADS Category 1: Negative Reviewed, dictated and finalized at location A. [employer]
== END 2022-11-01 11:18 | disposition home or self-care (01) ==
LOC: ANHIMG 11:18
PROVIDERS: PCP Internal Medicine; Visit Provider Internal Medicine
DX: Z12.31 Encounter for screening mammogram for malignant neoplasm of breast (principal)
CPT/HCPCS: 77063; 77067

== ENCOUNTER 2023-02-07 11:44 | Outpatient (CLI) | payer MEDICARE, SELFPAY ==
[2023-02-07 12:09] LABS: Hematocrit 36.4 % (37.0-47.0); Hemoglobin 11.8 g/dL (12.0-15.0)
--- NOTE | 2023-02-07 12:19 | ECG_ITS ---
Measurements Intervals [place] Rate: 72 P: 28 UT: 157 QRS: 18 QRSD: 88 T: 40 QT: 368 QTc: 403 Interpretive Statements SINUS RHYTHM VOLTAGE CRITERIA FOR LVH BORDERLINE ECG COMPARED TO ECG 11/14/2021 11:32:11 NO SIGNIFICANT CHANGES Electronically Signed On 02-07-2023 12:47:31 CDT by Lucian Lacey D.O.
[2023-02-07 12:26] LABS: Albumin Level 4.7 g/dL (3.5-5.1); Estimated Glomerular Filt Rate 54; Glucose 107 mg/dL (65-110)
== END 2023-02-07 11:45 | disposition home or self-care (01) ==
PROVIDERS: PCP Internal Medicine; Visit Provider Orthopaedic Surgery
DX: M17.11 Unilateral primary osteoarthritis, right knee (principal); E11.9 Type 2 diabetes mellitus without complications; E78.5 Hyperlipidemia, unspecified; C73 Malignant neoplasm of thyroid gland; E03.9 Hypothyroidism, unspecified; E55.9 Vitamin D deficiency, unspecified; I10 Essential (primary) hypertension; R94.31 Abnormal electrocardiogram [ECG] [EKG]
CPT/HCPCS: 82040; 82565; 82947; 83036; 85014; 85018; 93005

== ENCOUNTER 2023-02-14 09:55 | Outpatient (CLI) | payer SELFPAY ==
--- NOTE | ~2023-02-14 | CT_ITS ---
EXAMINATION: CT LE RT wo con DATE: 02/14/2023 10:42 INDICATION: Right knee osteoarthritis for preoperative planning. TECHNIQUE: High resolution computed tomography (CT) of the left knee was performed without intravenou s contrast. Additional sagittal and coronal reconstructions were performed. Automated exposure contro l and iterative reconstruction technique were employed. The dose-length product was 1561.42 mGy-cm. COMPARISON: Right knee radiographs dated 06/06/2022 FINDINGS: Bone alignment is normal. Mild osteoarthritis at the right hip. Tricompartmental osteoarthritis at th e right knee with severe joint space narrowing in the medial compartment but appreciated on the prior weightbearing imaging with the articular surface at the medial tibial plateau. Small marginal osteop hytes in the lateral and patellofemoral compartments. Small region of ring and arc-like chondroid mat ronnie at the distal femoral metadiaphyseal region measuring approximately 2.5 cm length consistent with an enchondroma. No right hip, knee or ankle joint effusions. 3.6 x 2.0 x 1.1 severe intramuscular li jeanine within the distal right vastus medialis muscle belly. Soft tissues are otherwise unremarkable. IMPRESSION: 1. Severe medial compartment predominant tricompartmental osteoarthritis at the right knee. 2. 2.5 cm intramedullary region of chondroid matrix consistent with an enchondroma in the distal righ t femoral metadiaphysis. Reviewed, dictated and finalized at location A. IMPRESSION: 1. Severe medial compartment predominant tricompartmental osteoarthritis at the right knee. 2. 2.5 cm intramedullary region of chondroid matrix consistent with an enchondr madie in the distal right femoral metadiaphysis.
== END 2023-02-14 09:56 | disposition home or self-care (01) ==
PROVIDERS: PCP Internal Medicine; Visit Provider Orthopaedic Surgery
DX: M17.11 Unilateral primary osteoarthritis, right knee (principal)
CPT/HCPCS: 73700

== ENCOUNTER 2023-03-20 13:30 | Outpatient (CLI) | payer MEDICARE, SELFPAY ==
[2023-03-20 15:03] LABS: Urine Cotinine NEGATIVE
[2023-03-20 15:04] LABS: Albumin Level 4.5 g/dL (3.5-5.1)
[2023-03-20 15:07] LABS: Anion Gap 9 mmol/L (8-16); Blood Urea Nitrogen 26 mg/dL (7-17); Calcium 9.5 mg/dL (8.4-10.2); Carbon Dioxide 30 mmol/L (22-30); Chloride 101 mmol/L (98-107); Estimated Glomerular Filt Rate 54; Glucose 110 mg/dL (65-110); Potassium 3.5 mmol/L (3.4-5.0); Sodium 140 mmol/L (137-145)
[2023-03-20 15:45] LABS: Basophils Percent Auto 0.6 % (0.2-1.2); Eosinophils Absolute Auto 0.1 K/mm3 (0-0.3); Hematocrit 35.5 % (37.0-47.0); Hemoglobin 11.4 g/dL (12.0-15.0); Immature Granulocyte Absolute 0.02 K/mm3 (0.00-0.031); Immature Granulocyte Percent A 0.3 % (0-0.5); Lymphocytes Absolute Auto 0.96 K/mm3 (0.9-3.2); Lymphocytes Percent Auto 14.4 % (18.3-44.2); Mean Corpuscular HGB Conc 32.1 g/dl (32-36); Mean Corpuscular Hemoglobin 28.6 pg (26-34); Mean Platelet Volume 12.1 fl (7.4-10.4); Monocytes Absolute Auto 0.5 K/mm3 (0.1-0.6); Monocytes Percent Auto 7.1 % (2.6-8.5); Neutrophils Percent Auto 75.6 % (45.5-73.1); Platelet Count Result 178 k/mm3 (150-375); Red Blood Count 3.99 M/mm3 (4.2-5.4); Red Cell Distribution Width 13.7 % (11.5-14.5); White Blood Count 6.7 K/mm3 (4.5-10.0)
== END 2023-03-20 13:31 | disposition home or self-care (01) ==
LOC: ANHSURGERY 13:34
PROVIDERS: Anesthesiology; PCP Internal Medicine; Visit Provider Orthopaedic Surgery
DX: M17.11 Unilateral primary osteoarthritis, right knee (principal); Z79.899 Other long term (current) drug therapy
CPT/HCPCS: 80048; 80307; 82040; 85025; 85055; 87081

== ENCOUNTER 2023-04-17 01:20 | Day surgery (SDC) | payer MEDICARE, SELFPAY ==
--- NOTE | 2023-03-20 13:38 | PC.NURSE ---
PRE-OP INSTRUCTIONS, PLEASE READ CAREFULLY Report to the Outpatient Waiting Room, entrance under the green pavilion located off [facility], at time _0600_ on date _04/17/23_. Planned Procedure Time: _0730_. PACK A SMALL OVERNIGHT BAG AND LEAVE IN THE CAR ALONG WITH YOUR WALKER Time changes happen often and if your time is changed the preop area will call you the afternoon before. - You and your visitor will be asked to self-screen and do not enter if you have any COVID symptoms. - A mask is optional within the hospital at this time. -VISITING HOURS 8AM-8PM Patients may have clear liquids (water, carbonated beverages, clear teas, apple juice) until 3 hours prior to surgery (0430 AM) with a maximum of 20 ounces. - No food from midnight until time of surgery Take the following medications with a SIP of water the morning of surgery: _LEVOTHYROXINE_ DO NOT STOP ANY OF YOUR OTHER PRESCRIPTION MEDICATIONS PRIOR TO SURGERY ?EXCEPT THE FOLLOWING Medications to discontinue per physician __NONE__, Date to take last dose Please no make-up, nail yakut, hairspray, perfume, deodorant, or body powder the day of surgery. No jewelry (including any body piercings) or valuables the day of surgery, leave them at home. Please take a shower or bath the night before, or the morning of, surgery with an antibacterial soap. Wear comfortable, loose fitting clothing. - Jewelry must be removed prior to entering the operating room. Rings and piercings that are not removed may be cut off. - The hospital will not accept responsibility for valuables. - Please leave all valuables, including medications, at home the day of surgery. If you are going home after surgery, a licensed rolloff driver must drive you home. - NO public transportation without another adult if you receive anesthesia. - We recommend that an adult stay with you for 24 hours following discharge. - We also recommend that you do not drive, make important decision, drink alcoholic beverages, or take any drugs that were not prescribed by your health care provider for at least 24 hours after your discharge time. Follow any additional instructions given to you from your surgeon. If you or anyone in your household have experienced Covid symptoms in the past week, please notify your surgeon or the nurse liaison at the phone number below for possible testing. Instructions given to _PATIENT_and asked if any additional questions and then verbalized understanding. Patient advised to call surgeon office or pre surgery nurse liaison [phone] if any additional questions.
[2023-03-20 13:51] VITALS: BP 132/62; PULSE 80; RESP 18; TEMP 37; O2SAT 99; BMI 31.3
[2023-04-17] VITALS (19 sets, daily range): BP systolic 112–169; BP diastolic 55–74; PULSE 57–98; RESP 12–18; TEMP 36.1–36.6; O2SAT 91–100
--- NOTE | ~2023-04-17 | XR_ITS ---
EXAMINATION: [id number] DATE: 04/17/2023 10:15 INDICATION: Postoperative evaluation following right total knee arthroplasty. TECHNIQUE: Anteroposterior and lateral views of the right knee were obtained. COMPARISON: CT dated 02/14/2023 FINDINGS: Right total knee arthroplasty with patellar resurfacing appears well seated and in near anatomic alig nment. No fractures identified. Calcified chondroid matrix again noted at the metadiaphyseal region of the distal femur consistent with an enchondroma. No endosteal scalloping or other aggressive featu res. Expected postoperative subcutaneous and intra-articular gas. IMPRESSION: 1. Right total knee arthroplasty, negative for postoperative purposes. Reviewed, dictated and finalized at location A.
[2023-04-17] MEDS: ACETAMINOPHEN 500 MG TABLET 1000 MG PO (06:13)
[2023-04-17] MEDS: LACTATED RINGERS 1,000 ML 30 ML IV CONT ×2 (06:43→09:58)
--- NOTE | 2023-04-17 06:48 | WPDANESEPPF ---
Anes - Initial Pre Proc Eval Procedure: Operation Date: 04/17/23 07:30 Proposed Procedures p Right Custom Total Knee Arthroplasty - Nathaniel Barajas MD Date/Time: 04/17/23 06:48 Surgeon: Nathaniel Barajas MD Pre Op Diagnosis: PRIMARY OA RIGHT KNEE Patient Data Age: 72 Gender: F Height: 1.63 m Weight: 80.6 kg Last Vital Signs Temp 36.3 C L 04/17/23 06:20 Pulse 79 04/17/23 06:20 Resp 16 04/17/23 06:20 BP 143/62 H 04/17/23 06:20 Pulse Ox 98 04/17/23 06:20 O2 Del Method Room Air 04/17/23 06:20 Allergies Allergy/AdvReac Type Severity Reaction Status Date / Time No Known Allergies Allergy Verified 04/17/23 06:07 Home Medications Medication Instructions Recorded Confirmed Type cholecalciferol (vitamin D3) 50 200 mcg PO DAILY 09/20/21 04/17/23 History mcg (2,000 unit) capsule levothyroxine 125 mcg tablet 125 mcg PO DAILY 03/27/22 04/17/23 History (Synthroid) atorvastatin 10 mg tablet See Rx Instructions .Route 02/23/23 04/17/23 Rx .COMPLEX #90 tabs losartan 100 See Rx Instructions .Route 02/23/23 04/17/23 Rx mg-hydrochlorothiazide 25 mg tablet .COMPLEX #90 tabs Patient hx anesthesia problems: none Family hx anesthesia problems: none Results Review: All pre-operative results and documents have been reviewed as part of the pre-operative evaluation. [facility] Past Medical History Medical History Bilateral knee pain Diabetes Dislocation of right shoulder with injury of brachial plexus Hernia HTN (hypertension) Hyperlipidemia Hypokalemia Hypothyroidism Orthopedic aftercare for joint replacement Overweight (BMI 25.0-29.9) Postoperative hypothyroidism Pre-op evaluation Primary osteoarthritis of right knee Rotator cuff arthropathy of right shoulder Screening for metabolic disorder Thyroid cancer TIA (transient ischemic attack) 2007 Vitamin deficiency Surgical History Surgical History History of appendectomy 1964 History of biopsy lump biopsy 1992 History of thyroidectomy 2004 History of tubal ligation 1985 Status post total left knee replacement (~02/15/22) Family History Family History Mother Depression Hypertension Family history of heart disease in male family member before age 55, Onset Age: 71 Hyperlipidemia Heart disease Diabetes mellitus Father Hypertension Family history of osteoarthritis Family history of kidney disease Family history of diabetes mellitus in first degree relative Heart disease Diabetes mellitus Sibling Carcinoma of colon Social History Social History Social History: caffeine-soda Smoking status: Never smoker Second hand tobacco smoke exposure: No Additional smoking assessment comments: PT DENEIS ALL FORMS OF TOBACCO USE Alcohol intake: never Substance use: never Substance use type: does not use Lack of Transportation: No Lack of Food: Never True Current Housing: I Have Housing Concerned About Future Housing: No Difficulty Paying Gas/Electric Bills: No Difficulty Paying for Meds: No Currently Unemployed: No Education: High School Diploma/GED Difficulty w/ Childcare or Family Care: No Living arrangements: with family Spiritual care concerns: No Anes - Eval Final PreProcedure Day of Procedure 04/17/23 06:48 Patient weight: obese Heart: regular rate and rhythm Lungs: clear to auscultation Airway: Mallampati scale class II Neurological: alert and oriented Last oral intake: >/= 8 hours ASA classification: III Emergent: no Anesthetic plan: proceed Anesthesia type and monitoring: general LMA and standard monitoring Results Review: All pre-operative results and documents have been reviewed as part of the pre-operative evaluat
[2023-04-17] MEDS: TRANEXAMIC ACID 1,000MG/ISO100 1,000 MG/100 ML BAG 200 MG IVPB (06:58)
--- NOTE | 2023-04-17 07:02 | WPDANESPNB ---
Anes - Peripheral Nerve Block Date/Time: 04/17/23 07:02 I have discussed with the patient/family/POA the placement of a peripheral nerve block for post-operative pain management, including associated risks, benefits, complications, and side effects. Alternative methods of post-operative analgesia were detailed. Questions were solicited and answers provided to the satisfaction of the patient/family/POA. Time-Out: A pre-procedural Time-Out was completed immediately before starting the procedure and confirmed: Patient Identification, Site, Procedure, Patient Position and the Availability of Requisite Equipment. Clinical Indications: Acute post-operative pain management requested by the operative surgeon. Nerve Block Insertion Note Anes-nerve block: adductor canal right Patient position: supine Skin prep: chlorhexidine Needle: 22 gauge, stimulating, insulated echogenic needle. Needle length: 80 mm Technique: ultrasound Injectate: bupivacaine 0.5% with epi 5 mcg/ml (30cc - no epi) Observations: tolerated well Complications: none Procedure start time:: 715 Procedure end time:: 718
--- NOTE | 2023-04-17 07:26 | WPDHPUPDATE1 ---
History and Physical Update Update Date/Time: 04/17/23 07:26 History and Physical has been reviewed, including an updated exam of the patient. There are NO changes in the patient's condition. Risks, benefits, and alternatives have been discussed and questions answered. Patient agrees to proceed with procedure.
[2023-04-17] MEDS: ceFAZolin 2 GM/D5W 50 ML 2 GM/50 ML BAG IVPB (07:30)
[2023-04-17] MEDS: GENTAMICIN BONE CEMENT REFOBACIN 1 EACH TOPICAL (09:00)
[2023-04-17] MEDS: fentaNYL CITRATE INJ (*CRX) 100 MCG/2 ML VIAL 25 MCG IV PUSH ×7 (10:10→11:08)
[2023-04-17] MEDS: ONDANSETRON INJ 4 MG/2 ML VIAL IV PUSH (11:12)
--- NOTE | 2023-04-17 11:46 | W.PM.PROC2 ---
Procedure Note - Detailed Date of Procedure 04/17/23 Pre-op Diagnosis PRIMARY OA RIGHT KNEE Post-op Diagnosis Same Procedure Performed Total knee arthroplasty, right. Surgeon Nathaniel Barajas MD Anesthesia General and Regional (Subsartorial block.) Findings Standard bone resections. Good bone quality. Moderate to large medial release. Description of Procedure Preoperative antibiotics were given. The limb was prepped and draped in the usual sterile fashion with a well-padded tourniquet high on the thigh. The limb was exsanguinated and the tourniquet inflated to 300 mmHg. A longitudinal incision was created just medial to the patella. A trivector approach to the knee was performed. Arthrotomy was taken down through the joint capsule. No significant releases were initially taken. The femur was exposed and the F1 jig was applied. The coring tool was used to remove the cartilage for the F2 jig to sit flush with the bone. The jig was pinned and the distal cut carefully taken. Caliper measurements confirmed appropriate bony resections according to the preoperative templated plan. The F4 cutting jig for the femur was applied, at the standard rotation. The AP and anterior chamfer cuts were taken. The F5 jig was applied and the posterior chamfer cuts were taken. The tibia was prepared using the T1 jig, after removing cartilage for the jig contact points. Proper alignment was checked with the alignment kenn. The tibia was cut using the T1u guide. Gap balancing was performed. Gap measurements were taken and the knee was trialed. Excellent alignment and soft tissue balancing was confirmed. The posterior cruciate ligament was recessed along the proximal tibia. The patella was cut for resurfacing. Three lug holes were drilled. Meniscal remnants were removed. The trial components were assembled. Excellent range of motion and proper soft tissue balancing were confirmed throughout the full range of motion. Patellar tracking was excellent. The knee was copiously irrigated periodically throughout the procedure. The real implants were cemented into position. Excess cement was carefully removed. The wound was closed in layers with interrupted #1 Vicryl suture, #2 strata fix suture, 2-0 strata fix suture, 3-0 strata fix suture. Steri-Strips placed on the skin with the knee flexed. Sterile bulky dressing applied. The patient was brought to the recovery room in stable condition. There were no complications. Implants Conformis Imprint total knee arthroplasty. Cemented. Cruciate retaining. 10 mm insert. 32 mm round patella. Estimated Blood Loss 50 Drains No Complications No immediate complications Condition Stable Disposition PACU [facility] Billing Surgery - Charge Forward: Surgery Billing
[2023-04-17] MEDS: oxyCODONE HCL (*CRX) 5 MG TAB IR PO (12:33)
[2023-04-17] MEDS: ceFAZolin 1 GM/NS 50 ML 1 GM/50 ML BAG IVPB (18:22)
--- NOTE | 2023-04-17 18:39 | PC.NURSE ---
Pt arrived to the unit after surgery. Pt tolerated transfer to bed. Pt worked with therapy. Pt ate crackers and had clear soda. Pt tolerated briefly. Pt has had some lingering nausea. Provider called and medication ordered. Pt participated and contributed in plan of care. Pt reported having pain and was treated with with medication. Cold therapy was placed on pt knee. Will continue to monitor pt.
[2023-04-18] MEDS: ceFAZolin 1 GM/NS 50 ML 1 GM/50 ML BAG IVPB ×2 (00:06→06:22)
[2023-04-18] MEDS: oxyCODONE HCL (*CRX) 5 MG TAB IR PO ×4 (00:07→12:52)
[2023-04-18] MEDS: LEVOTHYROXINE SODIUM 125 MCG TABLET PO (03:46)
[2023-04-18 04:00] VITALS: BP 109/54; PULSE 74; RESP 18; TEMP 36.3; O2SAT 96
[2023-04-18 05:52] LABS: Basophils Percent Auto 0.3 % (0.2-1.2); Eosinophils Percent Auto 0.3 % (0-4.4); Hematocrit 30.9 % (37.0-47.0); Hemoglobin 9.9 g/dL (12.0-15.0); Immature Granulocyte Absolute 0.03 K/mm3 (0.00-0.031); Immature Granulocyte Percent A 0.4 % (0-0.5); Lymphocytes Percent Auto 6.5 % (18.3-44.2); Mean Corpuscular Hemoglobin 28.5 pg (26-34); Mean Platelet Volume 11.9 fl (7.4-10.4); Monocytes Absolute Auto 0.6 K/mm3 (0.1-0.6); Neutrophils Absolute Auto 6.5 K/mm3 (1.3-6.7); Neutrophils Percent Auto 84.5 % (45.5-73.1); Platelet Count Result 140 k/mm3 (150-375); Red Blood Count 3.47 M/mm3 (4.2-5.4); White Blood Count 7.7 K/mm3 (4.5-10.0)
[2023-04-18 06:04] LABS: Anion Gap 5 mmol/L (8-16); Blood Urea Nitrogen 24 mg/dL (7-17); Carbon Dioxide 32 mmol/L (22-30); Chloride 97 mmol/L (98-107); Estimated CRCL calculation 50 ml/min; Estimated Glomerular Filt Rate > 60; Glucose 107 mg/dL (65-110); Potassium 3.5 mmol/L (3.4-5.0); Sodium 134 mmol/L (137-145)
[2023-04-18] MEDS: ATORVASTATIN 10 MG TABLET PO (08:18)
[2023-04-18] MEDS: CHOLECALCIFEROL 1,000 UNITS TABLET 2000 UNITS PO (08:18)
[2023-04-18] MEDS: hydroCHLOROthiazide 25 MG TABLET PO (08:18)
[2023-04-18] MEDS: CYCLOBENZAPRINE HCL 10 MG TABLET PO (09:30)
[2023-04-18 09:34] VITALS: BP 118/53; PULSE 81; RESP 18; TEMP 36.7; O2SAT 94
[2023-04-18] MEDS: LOSARTAN POTASSIUM 100 MG TABLET PO (09:57)
--- NOTE | 2023-04-18 11:19 | PC.NURSE ---
Pt is A&O4 female who has participated and contributed in plan of care. Pt has reported pain and it was treated with 5 of roxicodone. Pt will discharge home and do out patient therapy. Pt VITOR vaughn applied per provider instructions to pt. Pt expresses no needs at this time. Will continue to monitor pt until discharge.
--- NOTE | 2023-04-19 10:00 | PM.DS ---
DS: Admitting Diagnosis Discharge Date 04/18/23 Admitting Diagnosis Degenerative arthritis right knee. DS: Discharge Diagnosis Discharge Diagnosis (1) Status post total knee replacement, right: Code(s): Z96.651 - Presence of right artificial knee joint Status: Acute DS: Summary Hospital Course Reason for hospitalization: Total knee arthroplasty. Hospital Course: Tolerated surgery well. Progressed appropriately with therapy. Status at Discharge Functional status at discharge: uses cane/walker Overall status at discharge: patient is progressing back to baseline Time Spent with Patient Time attestation: Total time spent providing and/or coordinating discharge services: Exam Const: General: no acute distress Resp: Effort & Inspection: normal respiratory effort Skin: Other: Wound healing well. Mepilex dressing intact. No hematoma or drainage. Neuro: Motor exam (neuro): 5/5 motor strength present throughout Sensory Exam: normal sensation Psych: Mental Status: mental status grossly normal Speech and movement: Normal speech and movement present Discharge Plan Discharge Patient Disposition: Home, Self-Care Discharge Instructions: See instruction sheet. Stand Alone Forms: General Discharge Instructions Follow-up/Referrals: Nathaniel Barajas MD [Physician] - Discharge Medications: New prednisone 5 mg tablet 5 mg PO DAILY Qty: 21 0RF oxycodone-acetaminophen 5-325 mg tablet 1 - 2 tablet PO Q4-6H MDD 6 tablet PRN (Reason: pain) Qty: 30 0RF Continued levothyroxine [Synthroid] 125 mcg tablet 125 mcg PO DAILY cholecalciferol (vitamin D3) 50 mcg (2,000 unit) capsule 200 mcg PO DAILY atorvastatin 10 mg tablet 10 mg PO DAILY losartan-hydrochlorothiazide 100-25 mg tablet 1 tablet PO DAILY Quality VTE Prophylaxis VTE prophylaxis: mechanical ordered (VITOR vaughn and Catie)
== END 2023-04-18 13:00 | disposition home or self-care (01) ==
LOC: ANHSURGERY 05:56 → ANH3MEDSUR 11:51
PROVIDERS: PCP Internal Medicine; Visit Provider Orthopaedic Surgery
PROC: (CPT 27447; principal; 2023-04-17 07:30)
DX: M17.11 Unilateral primary osteoarthritis, right knee (principal); G89.18 Other acute postprocedural pain; I10 Essential (primary) hypertension; E78.5 Hyperlipidemia, unspecified; E11.9 Type 2 diabetes mellitus without complications; E89.0 Postprocedural hypothyroidism; Z86.73 Personal history of transient ischemic attack (TIA), and cerebral infarction without residual deficits; E66.9 Obesity, unspecified; Z68.30 Body mass index [BMI] 30.0-30.9, adult
CPT/HCPCS: 27447; 64447; 36415; 73560; 80048; 85025; 86850; 86900; 86901; 97110; 97116; 97161; 97165; 97530; 97535; A9270; C1713; C1776; J0171; J0690; J1100; J1170; J1885; J2270; J2370; J2405; J2704; J2795; J3010; J7120

== ENCOUNTER 2024-02-19 07:26 | Outpatient (CLI) | payer MEDICARE, SELFPAY ==
--- NOTE | ~2024-02-19 | MM_ITS ---
EXAMINATION: MM screening patel BI w pham HISTORY: Screening mammogram TECHNIQUE: Craniocaudal and mediolateral oblique 3-D tomosynthesis images were obtained and synthetic 2-D images were generated. CAD analysis was submitted and interpreted. COMPARISON: 11/01/2022, 09/06/2021 bilateral screening mammogram examinations BREAST PARENCHYMAL COMPOSITION: There are scattered areas of fibroglandular density. FINDINGS: There is no evidence of suspicious mass, calcification, or architectural distortion to sugg est malignancy in either breast. There has been no suspicious interval change. IMPRESSION: 1. No mammographic evidence of malignancy. 2. Recommend routine screening mammography in one year. BI-RADS Category 1: Negative Reviewed, dictated and finalized at location A.
== END 2024-02-19 07:27 | disposition home or self-care (01) ==
PROVIDERS: PCP Internal Medicine; Visit Provider Internal Medicine
DX: Z12.31 Encounter for screening mammogram for malignant neoplasm of breast (principal)
CPT/HCPCS: 77063; 77067

== ENCOUNTER 2025-04-15 07:56 | Outpatient (CLI) | payer MEDICARE, SELFPAY ==
--- NOTE | ~2025-04-15 | MM_ITS ---
EXAMINATION: MM screening patel BI w pham HISTORY: Screening TECHNIQUE: Craniocaudal and mediolateral oblique 3-D tomosynthesis images were obtained and synthetic 2-D images were generated. CAD analysis was submitted and interpreted. COMPARISON: Comparison to multiple prior studies sequentially, with oldest reviewed study dated 04/2017. BREAST PARENCHYMAL COMPOSITION: Not dense: There are scattered areas of fibroglandular density. FINDINGS: There is no evidence of suspicious mass, calcification, or architectural distortion to sugg est malignancy in either breast. There has been no suspicious interval change. IMPRESSION: 1. No mammographic evidence of malignancy. 2. Recommend routine screening mammography in one year. BI-RADS Category 1: Negative Reviewed, dictated and finalized at location []
== END 2025-04-15 07:57 | disposition home or self-care (01) ==
LOC: ANHIMG 07:59
PROVIDERS: PCP Internal Medicine; Visit Provider Internal Medicine
DX: Z12.31 Encounter for screening mammogram for malignant neoplasm of breast (principal)
CPT/HCPCS: 77063; 77067

== ENCOUNTER 2025-06-22 09:49 | Outpatient (CLI) | payer MEDICARE, SELFPAY ==
--- NOTE | ~2025-06-22 | DEXA_ITS ---
Bone Density Report Name: QIAN GRECO Age: 75 Sex: Female Ethnicity: White Date of : 1950 Indication: postmenopausal; screening for osteoporosis; height loss; Referring Provider: ARLYN BARRERA Study: Bone densitometry was performed. Exam Date: June 22, 2025 Accession number: [id number] Bone Density: Region BMD T-score Z-score Classification AP Spine(L1-L4) 1.284 2.2 4.6 Normal Femoral Neck (Left) 0.805 -0.4 1.7 Normal Total Hip (Left) 1.076 1.1 2.9 Normal Femoral Neck (Right) 0.785 -0.6 1.6 Normal Total Hip (Right) 1.045 0.8 2.7 Normal Total Hip Mean 1.061 1.0 2.8 Normal World Health Organization criteria for BMD impression classify patients as: Normal (T-score at or above -1.0), Osteopenia (T-score between -1.0 and -2.5), or Osteoporosis (T-score at or below -2.5). 10-year Fracture Risk: FRAX not reported because: All T-scores for Spine Total, Hip Total, Femoral Neck at or above -1.0 Previous Exams: Region Exam Age BMD T-score BMD Change BMD Change Date g/cm2 vs Baseline vs Previous Total Hip(Left) 06/22/2025 75 1.076 1.1 0.047 (4.5%)* 0.047 (4.5%)* 08/03/2020 70 1.030 0.7 Total Hip(Right) 06/22/2025 75 1.045 0.8 0.102 (10.8%)* 0.102 (10.8%)* 08/03/2020 70 0.943 0.0 *Denotes significance at 95% confidence level, LSC for Total Hip = 0.027 g/cm2 Clinical Information Provided by Patient: Has used the following medications: Vitamin D Patient maximum height was 65 Menopause Age: 52 No regular weight bearing exercise Does not regularly consume dairy products Drinks caffeinated beverages Onset of menses at age 13 Number of children 2 Impression: The patient has normal bone mass. No significant bone loss was observed. Discussion: BONE DENSITY IS ABOVE THE MINIMUM DESIRABLE LEVEL AT ALL SKELETAL SITES TESTED. This patient?s bone mineral density is above the minimum desirable level (T-score -1.0 or better) at all sites measured. The patient should follow a healthful lifestyle (good nutrition with adequate calcium and vitamin D, and appropriate weight-bearing exercise). Follow-Up: Consider repeating this study in 5 years or sooner if there is some new clinical indication. Reported by: AARON on 06/22/2025 10:32:00 AM. Reviewed, dictated and finalized at location A.
--- OUTSIDE RECORDS SUMMARY | 2025-06-22 10:14 | XMS_ITS | Clinical Summary ---
Author Organization [facility] Address [address] [place] [id number] Care Team Providers Care Janitor And Cleaner Name Role Phone Luis Armando Bella DO Primary Care Provider [phone] Allergies Active Allergy Reactions Criticality Noted Date Comments Codeine Other (See comments) Reaction: Unknown, Medications losartan-hydroc hlorothiazide (HYZAAR) 100-25 mg per tablet 06/25/2017 Activ e atorvastatin (LIPITOR) 10 mg tablet 06/21/2017 Active ergocalciferol (VITAMIN D) 50,000 unit capsule TK 1 C PO Q WK FOR 8 WKS 0 06/24/2019 Active levothyroxine (Synthroid) 125 mcg tablet Take 1 tablet (125 mcg total) by mouth every morning 90 tablet 1 07/19/2023 Active Active Problems Problem Noted Date Diagnosed Date Essential hypertension 08/16/2020 Postoperative hypothyroidism 01/26/2017 Overview (04/20/2017): Postoperative hypothyroidism Malignant neoplasm of thyroid gland 01/26/2017 Overview (04/20/2017): Malignant neoplasm of thyroid gland Surgical History Surgery Date Site/Laterality Comments OTHER SURGICAL HISTORY Tubal ligatino THYROIDECTOMY Thyroidectomy APPENDECTOMY Appendectomy OTHER SURGICAL HISTORY Left lung biopsy Medical History Medical History Date Comments Cerebrovascular accident (CVA) (HCC) Stroke Hypertension Hypertension Family History Medical History Relation Name Comments Coronary artery disease Father Addison nary artery disease; Diabetes Father Diabetes mellit us; Hypertension Father Hypertension; Coronary artery disease Mother Addison nary artery disease; Diabetes Mother Diabetes mellit us; Hypertension Mother Hypertension; Relation Name Status Comments Father Mother Social History Tobacco Use Types Packs/Day Years Used Date Smoking Tobacco: Never Smokeless Tobacco: Never Tobacco Cessation:Counseling Given: Not Answered Comments Unknown Sex and Gender Information Value Date Recorded Sex Assigned at Not on file Legal 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 Gender Identity Not on file Sexual Orientation Not on file Obstetrics History Last Filed Vital Signs Vital Sign Reading Time Taken Comments Blood Pressure 132/70 02/20/2023 11:12 AM CDT Pulse - - Temperature - - Respiratory Rate - - Oxygen Saturation - - Inhaled Oxygen Concentration - - Weight 82.5 kg (181 lb 12.8 oz) 023 11:12 AM CDT Height 162.6 cm (5' 4) 02/20/2023 11:1 2 AM CDT Body Mass Index 31.21 02/20/2023 11:12 AM CDT Plan of Treatment Health Maintenance Due Date Last Done Comments Depression Screening 1950 Fall Risk Assessment 1950 Hepatitis C Screening 1950 Osteoporosis Screening-Bone Density Scan 1950 Hepatitis B Screening 1967 Pneumococcal vaccine 65+ (2 of 2 - PCV) 01/24/2014 01/24/2013 Well Visit 65+ 2014 Zoster Vaccine (2 of 2) 10/14/2018 08/19/2018 DTaP/Tdap/Td Vaccine (2 - Td or Tdap) 01/24/2023 01/24/2013 Influenza Vaccine (#1) 2025 9, 07/26/2017, 08/17/2016, Additional history exists Insurance AETNA MEDICARE [facility]NA MEDICARE Address: [facility] [id number] [place] [address] Care Teams Janitor And Cleaner Relationship Specialty Start Date End Date Luis Armando Bella DO PCP - General 02/23/17
--- OUTSIDE RECORDS SUMMARY | 2025-06-22 10:14 | XMS_ITS | Continuity of Care Document ---
Author Organization [facility] Address [address] [place] [address] Phone Care Team Providers Care Painter And Body Mechanic Apprentice Name Role Phone Conroy OD, Jim Unavailable Unavailable Procedures Procedure Date Eye Exam & Treatment Refraction Progressive Lens, Hi Index Frames Deluxe Lens-Index>1.66Plas;>1.80Glas 8 Anti-reflective Coating Eye Exam & Treatment Refraction Eye Exam, New Patient Advance Directives Directive Yes / No Effective Date File Name No Information Encounters Encounter Description Practice Location Reason(s) For Visit Diagnoses Date Provider Providers Copied on Encounter [facility], [address], [place], [place], [id number], [place] tel:[phone] [facility] No Information 0-201 0 Conroy OD Jim. [address] , [address], [place], [address], [place]. tel:[phone] Referring Provider: Luis Armando Bella DO, [address], [place], [address]. tel:[phone] [facility], [address], [place], [place], [id number], [place] tel:[phone] [facility] No Information [facility]. [address] [facility], [address], [place], [place], [id number], [place]. tel:[phone] Referring Provider: Eddie isidro, [address] [facility] [address], [place], [address]. tel:[phone] sulting Provider: Keren Paiz, [address], [place], [facility]. tel:[phone] [facility], [address], [place], [id number], tel:[phone] [facility] No Information 8 [facility] [facility] [address], [facility], [place]. tel:[phone] [facility], [address], [place], [place], [id number], [place] tel:[phone] [facility] No Information 8 Omer Eddie. [address] [place] [address], [facility], [place]. tel:[phone] Family History Family Member Type Diagnosis Age At Onset No Information Payers Payer name Insurance type Covered alliance party ID Authorjeanmarie odom(s) [employer] Plan [id number] Social History Type Description Quantity Date Captured Comments Sex Female Smoking Status No Information Chief Complaint And Reason For Visit No Information Reason For Referral Reason For Referral No Information History Of Present Illness Encounter Date Complaint History Of Prese nt Illness No Information Functional Status Date Functional Assessmen t No Information Instructions Date Instruction Additional Infor mation No Information Assessments Type Assessment Date No Information Patient Care Teams Name Effective Dates (start - stop) Status Members No Information
--- OUTSIDE RECORDS SUMMARY | 2025-06-22 10:14 | XMS_ITS | Referral Summary ---
Author Organization [facility] Address [address] [place] [address] Care Team Providers Care Intravenous Therapy Nurse Name Role Phone Luis Armando Bella DO Primary Care Provider [phone] Allergies Active Allergy Reactions Criticality Noted Date [...] Overview (04/20/2017): Malignant neoplasm of thyroid gland Social History Tobacco Use Types Packs/Day Years Used Date Smoking Tobacco: Never Smokeless Tobacco: Never Tobacco Cessation:Counseling Given: Not Answered Comments Unknown Sex and Gender Information Value Date Recorded Sex Assigned at Not on file 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
== END 2025-06-22 09:50 | disposition home or self-care (01) ==
PROVIDERS: PCP Internal Medicine; Visit Provider Clinical Nurse Specialist
DX: Z78.0 Asymptomatic menopausal state (principal)
CPT/HCPCS: 77080